=== PATIENT | male | born 1975 | race Caucasian/White ===

== ENCOUNTER 2020-03-27 19:47 | Emergency (ER) | payer OTHER ==
[~2020-03-27] VITALS: Ht 172.7 cm; Wt 84.7 kg
--- NOTE | 2020-03-27 19:49 | ED General ---
General Stated Complaint: FEVER History of Present Illness Date Seen by Provider: Mar 27, 2020 Time Seen by Provider: 19:49 Initial Comments Patient presenting to emergency department for evaluation of abdominal pain nausea and dizziness multiple syncopal episodes cough fevers chills nausea vomiting and diarrhea. Reportedly he has not been eating or drinking since last Wednesday and he has been very lightheaded and says that he has not been eating or drinking as he feels nauseated. He stopped using his insulin several days ago and his blood sugars have jumped up as he is a type II diabetic. Patient says the diarrhea is nonbloody and he has not been on antibiotics recently in his emesis is nonbloody and nonbilious. Cough is nonproductive however he does feel short of breath. Fevers have been up to 103.3 at home. He says he was tested for COVID 2 days ago and got the results yesterday and the results came back negative. He is in no obvious distress but is tachycardic at 130. Allergies and Home Medications Allergies Coded Allergies: Penicillins (Verified Allergy, Unknown, 03/27/20) Patient Home Medication List Home Medication List Reviewed: Yes Review of Systems Review of Systems Constitutional: chills, dizziness, fever EENTM: no symptoms reported Respiratory: cough, short of breath Cardiovascular: no symptoms reported Gastrointestinal: abdominal pain, diarrhea, nausea, vomiting Genitourinary: no symptoms reported Musculoskeletal: no symptoms reported Skin: no symptoms reported Psychiatric/Neurological: No Symptoms Reported All Other Systems Reviewed Negative Unless Noted: Yes Physical Exam Vital Signs Vital Signs - First Documented 03/27/20 20:28 Temp 37.6 Pulse 131 Resp 22 B/P (MAP) 121/77 (92) Pulse Ox 95 O2 Delivery Room Air Capillary Refill : Height, Weight, BMI Height: '" Weight: lbs. oz. kg; BMI Method: General Appearance: No Apparent Distress, WD/WN HEENT: PERRL/EOMI Neck: Supple Respiratory: Lungs Clear, No Respiratory Distress Cardiovascular: Tachycardia Gastrointestinal: Non Tender, Soft Back: Normal Inspection Extremity: Normal Capillary Refill Neurologic/Psychiatric: Alert, Oriented x3 Skin: Warm/Dry Focused Exam Lactate Level 03/27/20 20:05: Lactic Acid Level 3.94*H 03/27/20 22:20: Lactic Acid Level 1.87 Lactic Acid Level Laboratory Tests Test 03/27/20 20:05 03/27/20 22:20 Lactic Acid Level 3.94 MMOL/L (0.50-2.00) *H 1.87 MMOL/L (0.50-2.00) Progress/Results/Core Measures Suspected Sepsis SIRS Temperature: Pulse: Respiratory Rate: Laboratory Tests 03/27/20 20:05: White Blood Count 14.5H Blood Pressure / Mean: 03/27/20 20:05: Lactic Acid Level 3.94*H 03/27/20 22:20: Lactic Acid Level 1.87 Laboratory Tests 03/27/20 20:05: Creatinine 1.49H, Platelet Count 414H, Total Bilirubin 0.6 03/27/20 22:20: Results/Orders Lab Results Laboratory Tests Test 03/27/20 19:50 03/27/20 20:05 03/27/20 21:15 03/27/20 22:20 Range/Units Pro-B-Type Natriuretic Peptide 344.6 H <75.0 PG/ML White Blood Count 14.5 H 4.3-11.0 10^3/uL Red Blood Count 4.00 L 4.35-5.85 10^6/uL Hemoglobin 12.0 L 13.3-17.7 G/DL Hematocrit 36 L 40-54 % Mean Corpuscular Volume 89 80-99 FL Mean Corpuscular Hemoglobin 30 25-34 PG Mean Corpuscular Hemoglobin Concent 34 32-36 G/DL Red Cell Distribution Width 12.8 10.0-14.5 % Platelet Count 414 H 130-400 10^3/uL Mean Platelet Volume 9.4 7.4-10.4 FL Immature Granulocyte % (Auto) 1 % Neutrophils (%) (Auto) 89 H 42-75 % Lymphocytes (%) (Auto) 6 L 12-44 % Monocytes (%) (Auto) 4 0-12 % Eosinophils (%) (Auto) 0 0-10 % Basophils (%) (Auto) 0 0-10 % Neutrophils # (Auto) 12.9 H 1.8-7.8 X 10^3 Lymphocytes # (Auto) 0.8 L 1.0-4.0 X 10^3 Monocytes # (Auto) 0.6 0.0-1.0 X 10^3 Eosinophils # (Auto) 0.0 0.0-0.3 10^3/uL Basophils # (Auto) 0.0 0.0-0.1 10^3/uL Immature Granulocyte # (Auto) 0.1 0.0-0.1 10^3/uL Neutrophils % (Manual) 82 % Lymphocytes % (Manual) 5 % Monocytes % (Manual) 5 % Eosinophils % (Manual) 0 % Basophils % (Manual) 0 % Band Neutrophils 8 % Blood Morphology Comment NORMAL D-Dimer 1.40 H 0.00-0.49 UG/ML Urine Color YELLOW Urine Clarity CLEAR Urine pH 6.0 5-9 Urine Specific Davis <=1.005 1.016-1.022 Urine Protein TRACE H NEGATIVE Urine Glucose (UA) 3+ H NEGATIVE Urine Ketones 1+ H NEGATIVE Urine Nitrite NEGATIVE NEGATIVE Urine Bilirubin NEGATIVE NEGATIVE Urine Urobilinogen 1.0 < = 1.0 MG/DL Urine Leukocyte Esterase NEGATIVE NEGATIVE Urine RBC (Auto) NEGATIVE NEGATIVE Urine RBC RARE /HPF Urine WBC 2-5 /HPF Urine Squamous Epithelial Cells RARE /HPF Urine Crystals NONE /LPF Urine Bacteria NEGATIVE /HPF Urine Casts PRESENT /LPF Urine Hyaline Casts 25-50 H /LPF Urine Granular Casts 2-5 H /LPF Urine Mucus SMALL H /LPF Urine Culture Indicated NO Sodium Level 129 L 135-145 MMOL/L Potassium Level 4.2 3.6-5.0 MMOL/L Chloride Level 92 L 98-107 MMOL/L Carbon Dioxide Level 17 L 21-32 MMOL/L Anion Gap 20 H 5-14 MMOL/L Blood Urea Nitrogen 20 H 7-18 MG/DL Creatinine 1.49 H 0.60-1.30 MG/DL Estimat Glomerular Filtration Rate 51 BUN/Creatinine Ratio 13 Glucose Level 306 H 70-105 MG/DL Lactic Acid Level 3.94 *H 1.87 0.50-2.00 MMOL/L Calcium Level 8.2 L 8.5-10.1 MG/DL Corrected Calcium 8.9 8.5-10.1 MG/DL Magnesium Level 1.6 1.6-2.4 MG/DL Total Bilirubin 0.6 0.1-1.0 MG/DL Aspartate Amino Transf (AST/SGOT) 24 5-34 U/L Alanine Aminotransferase (ALT/SGPT) 9 0-55 U/L Alkaline Phosphatase 68 40-136 U/L Troponin I < 0.30 <0.30 NG/ML Total Protein 7.0 6.4-8.2 GM/DL Albumin 3.1 L 3.2-4.5 GM/DL Lipase 31 8-78 U/L Urine Opiates Screen NEGATIVE NEGATIVE Urine Oxycodone Screen NEGATIVE NEGATIVE Urine Methadone Screen NEGATIVE NEGATIVE Urine Propoxyphene Screen NEGATIVE NEGATIVE Urine Barbiturates Screen NEGATIVE NEGATIVE Ur Tricyclic Antidepressants Screen NEGATIVE NEGATIVE Urine Phencyclidine Screen NEGATIVE NEGATIVE Urine Amphetamines Screen NEGATIVE NEGATIVE Urine Methamphetamines Screen NEGATIVE NEGATIVE Urine Benzodiazepines Screen NEGATIVE NEGATIVE Urine Cocaine Screen NEGATIVE NEGATIVE Urine Cannabinoids Screen NEGATIVE NEGATIVE Serum Alcohol < 10 <10 MG/DL Blood Gas Puncture Site RT RADIAL Blood Gas Patient Temperature 99.6 Arterial Blood pH 7.39 7.37-7.43 Arterial Blood Partial Pressure CO2 32 L 35-45 MMHG Arterial Blood Partial Pressure O2 61 L 79-93 MMHG Arterial Blood HCO3 19 L 23-27 MMOL/L Arterial Blood Total CO2 20.4 L 21.0-31.0 MMOL/L Arterial Blood Oxygen Saturation 91 L 94-100 % Arterial Blood Base Excess -4.7 L -2.5-2.5 MMOL/L Unruly Test YES-POS Blood Gas Ventilator Setting NO Blood Gas Inspired Oxygen 2 L Test 03/27/20 22:24 Range/Units Glucometer 276 H 70-110 MG/DL Micro Results Microbiology 03/27/20 Influenza Types A,B Antigen ([facility]ANTA) - Final, Complete My Orders Orders - XI YATES DO Iv/Invasive Line Insertion .IV start (03/27/20 19:59) Cbc With Automated Diff (03/27/20 19:59) Comprehensive Metabolic Panel (03/27/20 19:59) Drug Screen Stat (Urine) (03/27/20 19:59) Alcohol (03/27/20 19:59) Arterial Blood Gas (03/27/20 19:59) Fibrin Degradation Products (03/27/20 19:59) Chest 1 View Ap/Pa Only (03/27/20 19:59) Ua Culture If Indicated (03/27/20 19:59) Troponin I Fs (03/27/20 19:59) Influenza A And B Antigens (03/27/20 19:59) Lactic Acid Analyzer (03/27/20 19:59) Blood Culture (03/27/20 19:59) Lipase (03/27/20 19:59) Magnesium (03/27/20 19:59) Ondansetron Injection (Zofran Injectio (03/27/20 20:00) Ns Iv 1000 Ml (Sodium Chloride 0.9%) (03/27/20 20:00) Fentanyl Injection (Sublimaze Injection (03/27/20 20:00) Blood Culture (03/27/20 20:05) Manual Differential (03/27/20 20:05) Probnp Fs (03/27/20 20:52) Ns Iv 1000 Ml (Sodium Chloride 0.9%) (03/27/20 21:30) Lactated Ringers (Lr 1000 Ml Iv Solution (03/27/20 21:30) Ct Emily Chest/Noang Abd-Pelv W (03/27/20 21:27) Insulin Regular Drip (Myxredlin 100 Unit (03/27/20 21:45) Iohexol Injection (Omnipaque 350 Mg/Ml 1 (03/27/20 21:45) Received Contrast (Hold Metformin- Contr (03/27/20 21:45) Ns (Ivpb) (Sodium Chloride 0.9% Ivpb Bag (03/27/20 21:45) Levofloxacin 750 Mg/150 Ml Iv (Levaquin (03/27/20 21:45) Potassium Cl 10meq/50ml Ivpb (Kcl 10 Meq (03/27/20 21:45) Lactated Ringers (Lr 1000 Ml Iv Solution (03/27/20 21:45) Basic Metabolic Panel (03/27/20 22:14) Medications Given in ED Current Medications Medications Dose Ordered Sig/Rosibel Route Start Time Stop Time Status Last Admin Dose Admin Fentanyl Citrate 50 mcg ONCE ONCE IVP 03/27/20 20:00 03/27/20 20:02 DC 03/27/20 20:18 50 MCG Iohexol 150 ml ONCE ONCE IV 03/27/20 21:45 03/27/20 21:46 DC 03/27/20 22:17 125 ML Levofloxacin/ Dextrose 150 ml @ 100 mls/hr ONCE ONCE IV 03/27/20 21:45 03/27/20 23:14 03/27/20 22:10 100 MLS/HR Ondansetron HCl 4 mg ONCE ONCE IVP 03/27/20 20:00 03/27/20 20:02 DC 03/27/20 20:18 4 MG Potassium Chloride 50 ml @ 50 mls/hr ONCE ONCE IV 03/27/20 21:45 03/27/20 22:44 DC 03/27/20 22:10 50 MLS/HR Sodium Chloride 100 ml ONCE ONCE IV 03/27/20 21:45 03/27/20 21:46 DC 03/27/20 22:18 80 ML Vital Signs/I&O 03/27/20 20:28 Temp 37.6 Pulse 131 Resp 22 B/P (MAP) 121/77 (92) Pulse Ox 95 O2 Delivery Room Air Capillary Refill : Progress Note : Progress Note Will check labs imaging treat symptoms and reassess. Patient has multiple issues going on this time as he has diabetic ketoacidosis that is moderate in my opinion as his pH is normal but he has decreased CO2 level and lactic acidosis. He appears to have pneumonia and lymphopenia and certainly he has had a negative test but I cannot completely exclude COVID pneumonia or bacterial pneumonia is also a consideration given he has leukocytosis so he'll be placed on Levaquin and given aggressive IV fluid re hydration. Patient's heart rate has improved from 130 down to 105 and he is now afebrile. His oxygen saturation has decreased somewhat and is now on oxygen. I spoke to Dr. Coffey and they're completely out of the ICU beds which would be appropriate for him at [facility] and she cannot accept patient to she has access center and they're willing to accept the patient to [facility]. patient transferred in guarded condition. Critical Care Note Critical Care Total Time (minutes) 36 Departure Impression Primary Impression: DKA (diabetic ketoacidoses) Qualified Codes: E11.10 - Type 2 diabetes mellitus with ketoacidosis without coma Additional Impressions: Sepsis Pneumonia Lactic acid acidosis Leukocytosis Disposition: XFER SHT-TRM HOSP Condition: Improved Transfer Transfer Reason: Exceeds level of care Transfer Facility: [facility] Method of Transfer: EMS XI YATES DO Mar 27, 2020 19:49
[2020-03-27] MEDS ORDERED: ONDANSETRON 4 MG/2 ML (SDV) Z0FRAN IVP ONE (20:00)
[2020-03-27] MEDS ORDERED: NS IV 1000 ML 1,000 ML IV SCH ×2 (20:00→21:30)
[2020-03-27] MEDS ORDERED: fentaNYL INJECTION 100 MCG/2 ML AMP IVP ONE (20:00)
--- NOTE | 2020-03-27 20:28 | NUR ---
attempted abg without success, lab notified of need for draw.
[2020-03-27 20:44] LABS: BASOPHILS % (AUTO) 0 % (0-10); EOSINOPHILS % (AUTO) 0 % (0-10); HEMATOCRIT 36 % (40-54); LYMPHOCYTES % (AUTO) 6 % (12-44); MEAN CORPUSCULAR HEMOGLOBIN 30 PG (25-34); MEAN CORPUSCULAR HGB CONC 34 G/DL (32-36); MEAN CORPUSCULAR VOLUME 89 FL (80-99); MEAN PLATELET VOLUME 9.4 FL (7.4-10.4); MONOCYTES % (AUTO) 4 % (0-12); NEUTROPHILS % (AUTO) 89 % (42-75); PLATELET COUNT 414 10^3/uL (130-400); WHITE BLOOD COUNT 14.5 10^3/uL (4.3-11.0)
[2020-03-27 20:45] LABS: LYMPHOCYTES # (AUTO) 0.8 X 10^3 (1.0-4.0); MONOCYTES # (AUTO) 0.6 X 10^3 (0.0-1.0); NEUTROPHILS # (AUTO) 12.9 X 10^3 (1.8-7.8)
--- NOTE | 2020-03-27 20:49 | Diagnostic Imaging Report ---
EXAMINATION: Chest 1 view HISTORY: cough COMPARISON: None available. FINDINGS: Heart size is enlarged. Pulmonary vasculature are normal. There are mild patchy airspace opacities throughout both lungs. No pleural effusion or pneumothorax. The osseous structures are intact. IMPRESSION: 1. Mild patchy airspace opacities throughout both lungs. This finding could be seen with pneumonia, edema, or atelectasis. 2. Mild cardiomegaly. Dictated by: Dictated on workstation # [id number]
[2020-03-27 20:58] LABS: CHLORIDE 92 MMOL/L (98-107); POTASSIUM 4.2 MMOL/L (3.6-5.0); SODIUM 129 MMOL/L (135-145)
[2020-03-27 20:59] LABS: ALANINE AMINOTRANSFERASE 9 U/L (0-55); ALBUMIN 3.1 GM/DL (3.2-4.5); ALKALINE PHOSPHATASE 68 U/L (40-136); BILIRUBIN,TOTAL 0.6 MG/DL (0.1-1.0); BUN/CREATININE RATIO 13; CALCIUM 8.2 MG/DL (8.5-10.1); CARBON DIOXIDE 17 MMOL/L (21-32); CREATININE SERUM 1.49 MG/DL (0.60-1.30); GFR ESTIMATED 51; GLUCOSE 306 MG/DL (70-105); LIPASE 31 U/L (8-78); MAGNESIUM 1.6 MG/DL (1.6-2.4)
--- NOTE | 2020-03-27 21:00 | NUR ---
pt sleeping spo2 at 86-87%, pt placed on 2 liters nc.
[2020-03-27 21:22] LABS: ABG BASE EXCESS -4.7 MMOL/L (-2.5-2.5); ABG OXYGEN SATURATION 91 % (94-100); ABG PCO2 32 MMHG (35-45); ABG PH 7.39 (7.37-7.43); ABG PO2 61 MMHG (79-93); ABG TCO2 20.4 MMOL/L (21.0-31.0)
[2020-03-27 21:23] LABS: ALLENS TEST YES-POS; VENTILATOR NO
[2020-03-27 21:24] LABS: INSPIRED O2 2 L; PATIENT TEMP 99.6
[2020-03-27] MEDS ORDERED: LACTATED RINGERS 1,000 ML IV SCH ×2 (21:30→21:45)
[2020-03-27 21:38] LABS: BAND NEUTROPHILS 8 %; BASOPHILS % (MANUAL) 0 %; EOSINOPHILS % (MANUAL) 0 %; LYMPHOCYTES % (MANUAL) 5 %; MONOCYTES % (MANUAL) 5 %; NEUTROPHILS % (MANUAL) 82 %
[2020-03-27 21:39] LABS: RBC MORPH NORMAL
[2020-03-27] MEDS ORDERED: IOHEXOL 350 MG/ML 150 ML (OMNIPAQUE 350) VIAL IV ONE (21:45)
[2020-03-27] MEDS ORDERED: NS 100 ML (IVPB) BAG IV ONE (21:45)
[2020-03-27] MEDS ORDERED: HOLD METFORMIN - RECEIVED CONTRAST 20 ML VIAL IV SCH (21:45)
[2020-03-27] MEDS ORDERED: POTASSIUM CL 10MEQ/50ML IVPB 50 ML IV ONE (21:45)
[2020-03-27] MEDS ORDERED: LEVOFLOXACIN 750 MG/150 ML IV 150 ML IV ONE (21:45)
[2020-03-27 22:46] LABS: AMPHETAMINE SCREEN, URINE NEGATIVE (NEGATIVE); BARBITURATE SCREEN URINE NEGATIVE (NEGATIVE); BENZODIAZEPINES SCREEN URINE NEGATIVE (NEGATIVE); CANNABINOID SCREEN, URINE NEGATIVE (NEGATIVE); COCAINE SCREEN URINE NEGATIVE (NEGATIVE); METHADONE STAT NEGATIVE (NEGATIVE); METHAMPHETAMINE SCREEN URINE S NEGATIVE (NEGATIVE); OPIATE SCREEN URINE NEGATIVE (NEGATIVE); OXYCODONE STAT NEGATIVE (NEGATIVE); PROPOXYPHENE STAT NEGATIVE (NEGATIVE); TRICYCLIC ANTIDEPRESSANTS SCRE NEGATIVE (NEGATIVE)
[2020-03-27 22:47] LABS: CLARITY,URINE CLEAR; COLOR,URINE YELLOW
[2020-03-27 22:48] LABS: GLUCOSE, URINE (UA) 3+ (NEGATIVE); KETONES,URINE 1+ (NEGATIVE); PROTEIN,URINE TRACE (NEGATIVE)
[2020-03-27 22:49] LABS: BACTERIA,URINE NEGATIVE /HPF; BILIRUBIN,URINE NEGATIVE (NEGATIVE); HYALINE CASTS, URINE 25-50 /LPF; LEUKOCYTE ESTERASE ,URINE NEGATIVE (NEGATIVE); NITRITE,URINE NEGATIVE (NEGATIVE); RBC,URINE RARE /HPF; SQUAMOUS EPITHELIAL CELL,UR RARE /HPF
[2020-03-27 22:59] LABS: CHLORIDE 97 MMOL/L (98-107); POTASSIUM 4.2 MMOL/L (3.6-5.0); SODIUM 127 MMOL/L (135-145)
[2020-03-27 23:00] LABS: BUN/CREATININE RATIO 19; CALCIUM 7.1 MG/DL (8.5-10.1); CARBON DIOXIDE 21 MMOL/L (21-32); CREATININE SERUM 0.98 MG/DL (0.60-1.30); GFR ESTIMATED > 60; GLUCOSE 308 MG/DL (70-105)
[2020-03-27 23:37] VITALS: BP 110/68
--- NOTE | 2020-03-27 23:37 | NUR ---
ems here for transport, report and care given
--- NOTE | 2020-03-28 05:43 | Diagnostic Imaging Report ---
INDICATION: abd pain, n,v CTA chest, abdomen and pelvis TECHNIQUE: Thin axial sections through the chest, abdomen and pelvis are obtained following intravenous contrast bolus. Multiplanar MIP images were reconstructed and reviewed. All CT scans use one or more of the following dose optimizing techniques: automated exposure control, MA and/or KvP adjustment based on patient size and exam type or iterative reconstruction. COMPARISON: Radiograph the chest from same date. FINDINGS: Mild bilateral hilar adenopathy, including a 1.1 cm lymph node within the right hilum. No aneurysmal dilatation or dissection of the thoracic aorta. The heart is enlarged. Small pericardial effusion. Tiny bilateral pleural effusions. No pneumothorax. Extensive reticular and groundglass opacities are identified throughout all lobes of the lungs. These are greatest within the lower lungs. The trachea is patent. Rightward deviation of the trachea and esophagus. No significant filling defect within the central or segmental pulmonary arteries. Scattered osseous degenerative changes without acute osseous abnormality. The liver and spleen are unremarkable. The adrenal glands are unremarkable. The kidneys are unremarkable. The gallbladder is unremarkable. Bilateral perinephric fat stranding is present without evidence of hydroureteronephrosis. Mild scattered vascular calcifications without aneurysmal dilatation of the abdominal aorta. The urinary bladder is unremarkable. Small fat-containing right inguinal hernia. The appendix is unremarkable. No bowel obstruction or pneumatosis. No significant adenopathy, free air, or free fluid within abdomen or pelvis. No acute osseous abnormality. IMPRESSION: Extensive bilateral pulmonary infiltrates with associated trace pleural effusions, mild hilar adenopathy. Findings are suggestive of infectious infiltrate, Covid-19 could be considered. Bilateral perinephric fat stranding. This is nonspecific though may relate to underlying infectious or inflammatory nephritis versus simply senescent changes. Recommend correlation clinically and with urinary analysis. No significant pulmonary embolus. Additional findings as described above. Agree with preliminary interpretation. Dictated by: Dictated on workstation # [id number]
== END 2020-03-27 23:37 | disposition short-term general hospital (02) ==
LOC: ER FS 19:49
DX: E11.10 Type 2 diabetes mellitus with ketoacidosis without coma (principal); A41.9 Sepsis, unspecified organism; J18.9 Pneumonia, unspecified organism; E87.2 Acidosis; D72.829 Elevated white blood cell count, unspecified; Z20.828 Contact with and (suspected) exposure to other viral communicable diseases; Z88.0 Allergy status to penicillin
CPT/HCPCS: 36415; 71045; 71275; 74177; 80048; 80053; 80306; 81000; 82805; 82962; 83605; 83690; 83735; 83880; 84484; 85007; 85027; 85379; 87040; 87804 ×2; 99284; G0480; 80320